=== PATIENT | male | born 1970 | race Hispanic/Latino ===

== ENCOUNTER 2020-12-20 14:28 | Inpatient (IN) | payer BC ==
[2020-12-20] VITALS (10 sets, daily range): BP systolic 121–144; BP diastolic 89–112
[~2020-12-20] VITALS: Ht 177.8 cm; Wt 92.1 kg
[~2020-12-20 14:28] MED LIST: ALBUMIN (HUMAN) 25% 50 ML IV ONE; AMINOCAPROIC ACID 5,000MG VIAL IV ONE; CACL 1GM SYG IVP ONE; FUROSEMIDE 20MG VIAL IVP ONE; HEPARIN 10,000 UNIT/10ML (1,000 UNIT/ML) VIAL IV ONE; LIDOCAINE PF 100MG/5ML (2%) SYRINGE 5ML IVP ONE; MAGNESIUM SULFATE 1 GM/2 ML VIAL IM ONE; PHENYLEPHRINE HCL 10 MG/ML 1ML VIAL IV ONE; SODIUM BICARB 8.4% 50ML SYRINGE IVP ONE
[2020-12-20] MEDS ORDERED: FUROSEMIDE 20MG VIAL ONE (15:52)
[2020-12-20] MEDS ORDERED: METOPROLOL SUCCINATE 50 MG TAB.SR.24H PO ONE (15:52)
[2020-12-20] MEDS ORDERED: METOPROLOL TARTRATE 1 MG/ML 5ML VIAL IV ONE (15:53)
[2020-12-20 15:57] LABS: BASOPHILS % (AUTO) 1.2 % (0.0-5.0); EOSINOPHILS % (AUTO) 0.4 % (0.0-8.0); HEMATOCRIT 46.5 % (42-54); LYMPHOCYTES % (AUTO) 27.5 % (21.0-51.0); MEAN CORPUSCULAR HEMOGLOBIN 28.8 pg (27.0-33.0); MEAN CORPUSCULAR HGB CONC 32.7 g/dL (32.0-36.0); MEAN CORPUSCULAR VOLUME 88.1 fL (79-99); MONOCYTES % (AUTO) 11.9 % (3.0-13.0); NEUTROPHILS % (AUTO) 58.5 % (40.0-77.0); PLATELET COUNT (AUTO) 145 K/uL (130-400); RED BLOOD CELL COUNT(AUTO) 5.28 MIL/uL (4.50-6.20); RED CELL DISTRIBUTION WIDTH 14.6 % (11.0-15.5); WHITE BLOOD COUNT (AUTO) 7.7 K/uL (4.8-10.8)
[2020-12-20 16:05] LABS: HEMOGLOBIN A1C 5.9 % (4.0-6.0)
[2020-12-20 16:15] LABS: BILIRUBIN,TOTAL 1.7 mg/dL (0.2-1.0); CREATININE 1.2 mg/dL (0.5-1.5); POTASSIUM 4.1 mmol/L (3.5-5.1); THYROID STIMULATING HORMONE 1.94 uIU/mL (0.36-3.74); TOTAL PROTEIN, SERUM 8.1 g/dL (6.0-8.3)
[2020-12-20 16:27] LABS: INR 1.17 (0.85-1.15); PROTHROMBIN TIME 12.6 SEC (9.6-11.6)
[2020-12-20 16:29] LABS: PARTIAL THROMBOPLASTIN TIME 27.7 SEC (26.3-35.5)
[2020-12-20] MEDS: METOPROLOL TARTRATE 1 MG/ML 5ML VIAL IV PRN ×2 (16:53→16:58)
[2020-12-20] MEDS: HEPARIN 25,000 UNITS/250ML D5W 250 ML IV SCH (16:54)
[2020-12-20] MEDS ORDERED: ONDANSETRON 4MG INJ IV PRN (17:30)
[2020-12-20] MEDS ORDERED: LACTULOSE 20 GM/30 ML UDCUP PO PRN (17:30)
[2020-12-20] MEDS ORDERED: ACETAMINOPHEN 325 MG TAB PO PRN ×2 (17:30)
[2020-12-20] MEDS ORDERED: NITROGLYCERIN 0.4 MG SL TAB SL PRN (17:30)
[2020-12-20 17:59] LABS: PHOSPHORUS 4.6 mg/dL (2.5-4.9)
[2020-12-20 18:13] LABS: B-TYPE NATRIURETIC PEPTIDE 493 pg/mL (0-100)
[2020-12-20] MEDS ORDERED: DILTIAZEM 125 MG/25 ML INJ IV ONE (18:17)
[2020-12-20 18:25] LABS: APPEARANCE,URINE Clear (CLEAR); BILIRUBIN,URINE Negative (NEGATIVE); COLOR,URINE Yellow (YELLOW); GLUCOSE, URINE (UA) Negative (NEGATIVE); KETONES,URINE Negative (NEGATIVE); LEUKOCYTE ESTERASE ,URINE Negative (NEGATIVE); NITRATE,URINE Negative (NEGATIVE); OCCULT BLOOD,URINE Trace (NEGATIVE); PROTEIN,URINE Trace mg/dL (NEGATIVE)
[2020-12-20 18:30] LABS: BACTERIA,URINE Few /HPF (None Seen); MUCUS,URINE Few LPF (None Seen); SQUAMOUS EPITHELIAL CELL,UR Rare /HPF (0-2)
[2020-12-20] MEDS ORDERED: DILTIAZEM 125MG+100 ML NS 125 ML IV SCH (18:30)
[2020-12-20 18:45] LABS: ERYTHROCYTE SEDIMENTATION RATE 8 MM/HR (0-20)
[2020-12-20] MEDS: FUROSEMIDE 20MG VIAL IV SCH (20:43)
[2020-12-20] MEDS: FAMOTIDINE 20MG TAB PO SCH (20:43)
[2020-12-20] MEDS: METOPROLOL SUCCINATE 50 MG TAB.SR.24H PO SCH (21:00)
[2020-12-20] MEDS ORDERED: FUROSEMIDE 20MG VIAL IV SCH (21:00)
[2020-12-20] MEDS ORDERED: APIX2.5T PO (21:10)
[2020-12-20] MEDS ORDERED: LOSA25TA41 PO (21:10)
[2020-12-20] MEDS ORDERED: AEC81 PO (21:10)
[2020-12-20 23:45] LABS: MAGNESIUM 1.9 mg/dL (1.80-2.40); POTASSIUM 3.8 mmol/L (3.5-5.1)
[2020-12-21] VITALS (16 sets, daily range): BP systolic 117–140; BP diastolic 77–101
[2020-12-21] MEDS ORDERED: DILTIAZEM 125 MG/25 ML INJ IV ONE (04:47)
[2020-12-21] MEDS ORDERED: 0.9%NACL 100ML 100 ML ONE (04:48)
[2020-12-21 07:27] LABS: BASOPHILS % (AUTO) 0.9 % (0.0-5.0); HEMATOCRIT 42.1 % (42-54); LYMPHOCYTES % (AUTO) 29.7 % (21.0-51.0); MEAN CORPUSCULAR HEMOGLOBIN 29.2 pg (27.0-33.0); MEAN CORPUSCULAR HGB CONC 32.8 g/dL (32.0-36.0); MONOCYTES % (AUTO) 11.1 % (3.0-13.0); NEUTROPHILS % (AUTO) 56.9 % (40.0-77.0); PLATELET COUNT (AUTO) 131 K/uL (130-400); RED BLOOD CELL COUNT(AUTO) 4.73 MIL/uL (4.50-6.20); RED CELL DISTRIBUTION WIDTH 14.6 % (11.0-15.5); WHITE BLOOD COUNT (AUTO) 6.7 K/uL (4.8-10.8)
[2020-12-21 07:57] LABS: B-TYPE NATRIURETIC PEPTIDE 511 pg/mL (0-100)
[2020-12-21 08:10] LABS: ALBUMIN 3.1 g/dL (3.5-5.0); BILIRUBIN,TOTAL 1.8 mg/dL (0.2-1.0); CREATININE 1.2 mg/dL (0.5-1.5); POTASSIUM 3.5 mmol/L (3.5-5.1); TOTAL PROTEIN, SERUM 7.1 g/dL (6.0-8.3)
[2020-12-21] MEDS ORDERED: METOPROLOL SUCCINATE 50 MG TAB.SR.24H PO SCH ×2 (09:00)
[2020-12-21] MEDS: FUROSEMIDE 20MG VIAL IV SCH ×3 (09:02→21:18)
[2020-12-21] MEDS: FAMOTIDINE 20MG TAB PO SCH ×2 (09:03→21:18)
[2020-12-21] MEDS: DILTIAZEM 120MG SR CAP PO SCH (09:03)
[2020-12-21] MEDS: KCL 20 MEQ ERTAB PO SCH (09:03)
[2020-12-21] MEDS: METOPROLOL SUCCINATE 50 MG TAB.SR.24H PO SCH ×2 (09:03→21:00)
[2020-12-21 16:08] LABS: INR 1.21 (0.85-1.15)
[2020-12-21 16:09] LABS: PARTIAL THROMBOPLASTIN TIME 60.5 SEC (26.3-35.5)
[2020-12-22 03:50] VITALS: BP 152/97
[2020-12-22 03:52] LABS: BASOPHILS % (AUTO) 0.9 % (0.0-5.0); EOSINOPHILS % (AUTO) 1.7 % (0.0-8.0); HEMATOCRIT 39.7 % (42-54); LYMPHOCYTES % (AUTO) 29.3 % (21.0-51.0); MEAN CORPUSCULAR HEMOGLOBIN 28.6 pg (27.0-33.0); MEAN CORPUSCULAR VOLUME 86.7 fL (79-99); MONOCYTES % (AUTO) 13.1 % (3.0-13.0); NEUTROPHILS % (AUTO) 54.4 % (40.0-77.0); PLATELET COUNT (AUTO) 140 K/uL (130-400); RED BLOOD CELL COUNT(AUTO) 4.58 MIL/uL (4.50-6.20); RED CELL DISTRIBUTION WIDTH 14.3 % (11.0-15.5); WHITE BLOOD COUNT (AUTO) 6.9 K/uL (4.8-10.8)
[2020-12-22 04:22] LABS: ALBUMIN 3.4 g/dL (3.5-5.0); BILIRUBIN,TOTAL 1.3 mg/dL (0.2-1.0); CREATININE 1.4 mg/dL (0.5-1.5); POTASSIUM 3.4 mmol/L (3.5-5.1); TOTAL PROTEIN, SERUM 7.1 g/dL (6.0-8.3)
[2020-12-22] MEDS: HEPARIN 25,000 UNITS/250ML D5W 250 ML IV SCH ×2 (05:43→21:25)
[2020-12-22 08:12] VITALS: BP 131/81
[2020-12-22 08:14] LABS: HEPATITIS A ANTIBODY IGM Negative (Negative); HEPATITIS B CORE IGM Negative (Negative); HEPATITIS Bs ANTIGEN SCREEN P Negative (Negative)
[2020-12-22] MEDS: FAMOTIDINE 20MG TAB PO SCH ×2 (10:09→21:14)
[2020-12-22] MEDS: KCL 20 MEQ ERTAB PO SCH (10:10)
[2020-12-22] MEDS: DILTIAZEM 120MG SR CAP PO SCH (10:10)
[2020-12-22] MEDS: METOPROLOL SUCCINATE 50 MG TAB.SR.24H PO SCH ×2 (10:10→21:15)
[2020-12-22] MEDS: FUROSEMIDE 20MG VIAL IV SCH ×3 (10:10→21:14)
[2020-12-22 11:43] VITALS: BP 137/77
[2020-12-22 16:23] VITALS: BP 128/70
[2020-12-22 20:00] VITALS: BP 119/71
[2020-12-23] VITALS: BP 104/82
[2020-12-23 04:00] VITALS: BP 128/83
[2020-12-23 04:38] LABS: BASOPHILS % (AUTO) 0.9 % (0.0-5.0); EOSINOPHILS % (AUTO) 1.9 % (0.0-8.0); HEMATOCRIT 42.8 % (42-54); LYMPHOCYTES % (AUTO) 36.4 % (21.0-51.0); MEAN CORPUSCULAR HEMOGLOBIN 29.3 pg (27.0-33.0); MEAN CORPUSCULAR HGB CONC 33.2 g/dL (32.0-36.0); MEAN CORPUSCULAR VOLUME 88.2 fL (79-99); MONOCYTES % (AUTO) 13.5 % (3.0-13.0); NEUTROPHILS % (AUTO) 46.6 % (40.0-77.0); PLATELET COUNT (AUTO) 168 K/uL (130-400); RED BLOOD CELL COUNT(AUTO) 4.85 MIL/uL (4.50-6.20); RED CELL DISTRIBUTION WIDTH 14.4 % (11.0-15.5)
[2020-12-23 04:54] LABS: ALBUMIN 3.4 g/dL (3.5-5.0); BILIRUBIN,TOTAL 0.9 mg/dL (0.2-1.0); CREATININE 1.2 mg/dL (0.5-1.5); POTASSIUM 3.4 mmol/L (3.5-5.1); TOTAL PROTEIN, SERUM 7.3 g/dL (6.0-8.3)
[2020-12-23 06:09] LABS: INR 1.18 (0.85-1.15); PROTHROMBIN TIME 12.7 SEC (9.6-11.6)
[2020-12-23 06:10] LABS: PARTIAL THROMBOPLASTIN TIME 66.9 SEC (26.3-35.5)
[2020-12-23] MEDS: KCL 20 MEQ ERTAB PO PRN ×2 (06:20→16:30)
[2020-12-23] MEDS: METOPROLOL SUCCINATE 50 MG TAB.SR.24H PO SCH ×2 (06:20→20:23)
[2020-12-23] MEDS ORDERED: POTASSIUM CHLORIDE 10% ELIXIR 20 MEQ/15 ML UDCUP PO PRN (06:30)
[2020-12-23] MEDS ORDERED: LIDOCAINE HCL-MPF 1% 2ML VIAL IV PRN (06:30)
[2020-12-23 07:48] VITALS: BP 132/98
[2020-12-23] MEDS ORDERED: MIDAZOLAM HCL 1 MG/ML 2ML VIAL ONE (09:12)
[2020-12-23] MEDS ORDERED: FENTANYL CITRATE PF 50 MCG/1 ML 2ML VIAL ONE ×2 (09:12→09:15)
[2020-12-23] MEDS ORDERED: LIDOCAINE HCL 2% VISCOUS 15 ML UDCUP ONE (09:15)
[2020-12-23] MEDS ORDERED: FUROSEMIDE 40 MG TABLET PO SCH (09:30)
[2020-12-23] MEDS ORDERED: AMIODARONE 900MG VIAL 150 MG in DEXTROSE 5%-WATER 100 ML IV SCH (11:00)
[2020-12-23] MEDS ORDERED: AMIODARONE 900MG VIAL 900 MG in DEXTROSE 5%-WATER 500 ML IV SCH (11:00)
[2020-12-23] MEDS ORDERED: AMIODARONE 900MG VIAL 360 MG in DEXTROSE 5%-WATER 200 ML IV SCH (11:00)
[2020-12-23] MEDS ORDERED: AMIODARONE 900MG VIAL 450 MG in DEXTROSE 5%-WATER 250 ML IV SCH (11:00)
[2020-12-23] MEDS: FAMOTIDINE 20MG TAB PO SCH ×2 (11:45→20:23)
[2020-12-23] MEDS: KCL 20 MEQ ERTAB PO SCH (11:45)
[2020-12-23 11:49] VITALS: BP 130/87
[2020-12-23] MEDS: FENTANYL CITRATE PF 50 MCG/1 ML 2ML VIAL IVP SCH (14:50)
[2020-12-23] MEDS: MIDAZOLAM HCL 1 MG/ML 2ML VIAL IVP SCH (14:50)
[2020-12-23 15:25] VITALS: BP 114/88
[2020-12-23] MEDS: FUROSEMIDE 40 MG TABLET PO SCH (16:27)
[2020-12-23 20:00] VITALS: BP 129/94
[2020-12-23] MEDS: HEPARIN 25,000 UNITS/250ML D5W 250 ML IV SCH (20:30)
[2020-12-24] VITALS: BP 130/90
[2020-12-24 04:00] VITALS: BP 118/89
[2020-12-24 04:42] LABS: INR 1.12 (0.85-1.15); PROTHROMBIN TIME 12.1 SEC (9.6-11.6)
[2020-12-24 04:57] LABS: ALBUMIN 3.6 g/dL (3.5-5.0); BILIRUBIN,TOTAL 1.2 mg/dL (0.2-1.0); CREATININE 1.3 mg/dL (0.5-1.5); POTASSIUM 3.9 mmol/L (3.5-5.1); TOTAL PROTEIN, SERUM 7.9 g/dL (6.0-8.3)
[2020-12-24] MEDS: MIDAZOLAM HCL 1 MG/ML 2ML VIAL IVP SCH (07:04)
[2020-12-24] MEDS: FENTANYL CITRATE PF 50 MCG/1 ML 2ML VIAL IVP SCH (07:04)
[2020-12-24] MEDS: FUROSEMIDE 40 MG TABLET PO SCH ×2 (07:32→16:13)
[2020-12-24] MEDS: METOPROLOL SUCCINATE 50 MG TAB.SR.24H PO SCH ×2 (07:32→20:18)
[2020-12-24] MEDS: FAMOTIDINE 20MG TAB PO SCH ×2 (07:32→20:18)
[2020-12-24] MEDS: KCL 20 MEQ ERTAB PO SCH (07:33)
[2020-12-24 08:09] VITALS: BP 142/107
[2020-12-24 11:44] VITALS: BP 115/80
[2020-12-24 16:00] VITALS: BP 131/98
[2020-12-24 20:00] VITALS: BP 141/102
[2020-12-25] VITALS: BP 139/98
[2020-12-25 04:00] VITALS: BP 137/100
[2020-12-25 05:04] LABS: EOSINOPHILS % (AUTO) 2.5 % (0.0-8.0); HEMATOCRIT 43.2 % (42-54); LYMPHOCYTES % (AUTO) 40.7 % (21.0-51.0); MEAN CORPUSCULAR HEMOGLOBIN 29.2 pg (27.0-33.0); MEAN CORPUSCULAR HGB CONC 33.6 g/dL (32.0-36.0); MEAN CORPUSCULAR VOLUME 86.9 fL (79-99); MONOCYTES % (AUTO) 9.6 % (3.0-13.0); NEUTROPHILS % (AUTO) 45.9 % (40.0-77.0); PLATELET COUNT (AUTO) 168 K/uL (130-400); RED BLOOD CELL COUNT(AUTO) 4.97 MIL/uL (4.50-6.20); RED CELL DISTRIBUTION WIDTH 14.1 % (11.0-15.5); WHITE BLOOD COUNT (AUTO) 5.9 K/uL (4.8-10.8)
[2020-12-25 05:15] LABS: INR 1.11 (0.85-1.15)
[2020-12-25 05:16] LABS: PARTIAL THROMBOPLASTIN TIME 70.4 SEC (26.3-35.5)
[2020-12-25 05:17] LABS: CREATININE 1.3 mg/dL (0.5-1.5); POTASSIUM 3.7 mmol/L (3.5-5.1)
[2020-12-25] MEDS: AMIODARONE 200 MG TABLET PO SCH (07:38)
[2020-12-25] MEDS: FUROSEMIDE 40 MG TABLET PO SCH ×2 (07:38→16:22)
[2020-12-25] MEDS: METOPROLOL SUCCINATE 50 MG TAB.SR.24H PO SCH ×2 (07:38→20:10)
[2020-12-25] MEDS: FAMOTIDINE 20MG TAB PO SCH ×2 (07:38→20:10)
[2020-12-25] MEDS: KCL 20 MEQ ERTAB PO SCH (07:39)
[2020-12-25] MEDS: HEPARIN 25,000 UNITS/250ML D5W 250 ML IV SCH (07:46)
[2020-12-25 08:56] VITALS: BP 139/66
[2020-12-25] MEDS: FENTANYL CITRATE PF 50 MCG/1 ML 2ML VIAL IVP SCH (09:10)
[2020-12-25] MEDS: MIDAZOLAM HCL 1 MG/ML 2ML VIAL IVP SCH (09:10)
[2020-12-25 11:36] VITALS: BP 126/103
[2020-12-25 16:02] VITALS: BP 138/104
[2020-12-25 20:00] VITALS: BP 132/93
[2020-12-26] VITALS (14 sets, daily range): BP systolic 120–146; BP diastolic 70–102
[2020-12-26 03:50] LABS: HEMATOCRIT 47.5 % (42-54); MEAN CORPUSCULAR HEMOGLOBIN 28.9 pg (27.0-33.0); MEAN CORPUSCULAR HGB CONC 32.8 g/dL (32.0-36.0); MEAN CORPUSCULAR VOLUME 88.1 fL (79-99); RED BLOOD CELL COUNT(AUTO) 5.39 MIL/uL (4.50-6.20); RED CELL DISTRIBUTION WIDTH 14.2 % (11.0-15.5); WHITE BLOOD COUNT (AUTO) 7.2 K/uL (4.8-10.8)
[2020-12-26 04:03] LABS: INR 1.08 (0.85-1.15); PROTHROMBIN TIME 11.7 SEC (9.6-11.6)
[2020-12-26 04:07] LABS: CREATININE 1.4 mg/dL (0.5-1.5); POTASSIUM 5.2 mmol/L (3.5-5.1)
[2020-12-26] MEDS ORDERED: 0.9% NACL 500ML IV.SOLN 500 ML IV SCH (11:00)
[2020-12-26] MEDS ORDERED: HEPARIN 10,000 UNIT/10ML (1,000 UNIT/ML) VIAL ONE (11:38)
[2020-12-26] MEDS ORDERED: LIDOCAINE HCL 400MG/20ML VIAL ONE (11:38)
[2020-12-26] MEDS ORDERED: NITROGLYCERIN 2 MG VIAL IV ONE (11:38)
[2020-12-26] MEDS ORDERED: IOHEXOL 350 MG/ML 100ML INFUS..BTL IV ONE (11:42)
[2020-12-26] MEDS ORDERED: 0.9%NACL 1000ML 1,000 ML IV SCH (13:00)
[2020-12-26] MEDS ORDERED: DEXTROSE 50%-WATER 50 ML DISP.SYRIN IV PRN (13:00)
[2020-12-26] MEDS ORDERED: GLUCAGON 1MG KIT 1 MG ML IM PRN (13:00)
[2020-12-26] MEDS: FAMOTIDINE 20MG TAB PO SCH ×2 (13:01→21:37)
[2020-12-26] MEDS: AMIODARONE 200 MG TABLET PO SCH (13:02)
[2020-12-26] MEDS: KCL 20 MEQ ERTAB PO SCH (13:02)
[2020-12-26] MEDS: FUROSEMIDE 40 MG TABLET PO SCH ×2 (13:02→17:13)
[2020-12-26] MEDS: METOPROLOL SUCCINATE 50 MG TAB.SR.24H PO SCH ×2 (13:03→21:36)
[2020-12-26 16:42] LABS: APPEARANCE,URINE Clear (CLEAR); BILIRUBIN,URINE Negative (NEGATIVE); COLOR,URINE Yellow (YELLOW); GLUCOSE, URINE (UA) Negative (NEGATIVE); KETONES,URINE Negative (NEGATIVE); LEUKOCYTE ESTERASE ,URINE Negative (NEGATIVE); NITRATE,URINE Negative (NEGATIVE); OCCULT BLOOD,URINE Negative (NEGATIVE); PH,URINE 7.5 (5.0-8.0); PROTEIN,URINE Negative (NEGATIVE)
[2020-12-27] VITALS: BP 128/86
[2020-12-27 04:00] VITALS: BP 139/97
[2020-12-27 04:26] LABS: EOSINOPHILS % (AUTO) 1.6 % (0.0-8.0); HEMATOCRIT 47.7 % (42-54); LYMPHOCYTES % (AUTO) 36.2 % (21.0-51.0); MEAN CORPUSCULAR HGB CONC 33.3 g/dL (32.0-36.0); MEAN CORPUSCULAR VOLUME 86.9 fL (79-99); MONOCYTES % (AUTO) 10.3 % (3.0-13.0); NEUTROPHILS % (AUTO) 50.6 % (40.0-77.0); PLATELET COUNT (AUTO) 208 K/uL (130-400); RED BLOOD CELL COUNT(AUTO) 5.49 MIL/uL (4.50-6.20)
[2020-12-27 04:27] LABS: ABG BASE EXCESS 2.8 mmol/L (-2.0-3.0); ABG HCO3 27.4 mmol/L (21.0-28.0); ABG PCO2 42 mmHg (35-48)
[2020-12-27 04:40] LABS: B-TYPE NATRIURETIC PEPTIDE 273 pg/mL (0-100); INR 1.08 (0.85-1.15); PROTHROMBIN TIME 11.7 SEC (9.6-11.6)
[2020-12-27 04:41] LABS: PARTIAL THROMBOPLASTIN TIME 66.2 SEC (26.3-35.5)
[2020-12-27 05:04] LABS: ALBUMIN 3.4 g/dL (3.5-5.0); BILIRUBIN,TOTAL 0.8 mg/dL (0.2-1.0); CREATININE 1.4 mg/dL (0.5-1.5); POTASSIUM 3.9 mmol/L (3.5-5.1); TOTAL PROTEIN, SERUM 7.8 g/dL (6.0-8.3)
[2020-12-27] MEDS: KCL 20 MEQ ERTAB PO SCH (07:55)
[2020-12-27] MEDS: METOPROLOL SUCCINATE 50 MG TAB.SR.24H PO SCH ×2 (07:55→21:35)
[2020-12-27] MEDS: FUROSEMIDE 40 MG TABLET PO SCH ×2 (07:55→16:07)
[2020-12-27] MEDS: AMIODARONE 200 MG TABLET PO SCH (07:55)
[2020-12-27] MEDS: FAMOTIDINE 20MG TAB PO SCH ×2 (07:55→21:34)
[2020-12-27 08:50] VITALS: BP 137/99
[2020-12-27 12:33] VITALS: BP 130/97
[2020-12-27] MEDS ORDERED: EPINEPHRINE PF 1MG AMP 10 MG in 0.9% NACL 250ML 240 ML IV PRN (14:00)
[2020-12-27] MEDS ORDERED: NOREPINEPHRIN 8MG/250ML NS PMX 250 ML IV PRN (14:00)
[2020-12-27] MEDS ORDERED: AMINOCAPROIC ACID 5,000MG VIAL 15,000 MG in 0.9% NACL 500ML IV.SOLN 420 ML IV PRN (14:00)
[2020-12-27] MEDS ORDERED: CEFAZOLIN SODIUM 1 GM VIAL IVP PRN (15:00)
[2020-12-27 16:51] VITALS: BP 157/96
[2020-12-27 20:00] VITALS: BP 134/94
[2020-12-28] VITALS (32 sets, daily range): BP systolic 105–148; BP diastolic 50–100
[2020-12-28 04:56] LABS: EOSINOPHILS % (AUTO) 1.8 % (0.0-8.0); LYMPHOCYTES % (AUTO) 39.2 % (21.0-51.0); MEAN CORPUSCULAR HEMOGLOBIN 28.6 pg (27.0-33.0); MEAN CORPUSCULAR HGB CONC 33.2 g/dL (32.0-36.0); MEAN CORPUSCULAR VOLUME 86.1 fL (79-99); MONOCYTES % (AUTO) 12.7 % (3.0-13.0); NEUTROPHILS % (AUTO) 44.9 % (40.0-77.0); PLATELET COUNT (AUTO) 226 K/uL (130-400); RED BLOOD CELL COUNT(AUTO) 5.46 MIL/uL (4.50-6.20); WHITE BLOOD COUNT (AUTO) 6.8 K/uL (4.8-10.8)
[2020-12-28 05:07] LABS: INR 1.08 (0.85-1.15); PROTHROMBIN TIME 11.7 SEC (9.6-11.6)
[2020-12-28 05:08] LABS: PARTIAL THROMBOPLASTIN TIME 27.6 SEC (26.3-35.5)
[2020-12-28 05:20] LABS: ALBUMIN 3.4 g/dL (3.5-5.0); BILIRUBIN,TOTAL 0.9 mg/dL (0.2-1.0); CREATININE 1.2 mg/dL (0.5-1.5); TOTAL PROTEIN, SERUM 7.7 g/dL (6.0-8.3)
[2020-12-28] MEDS: METOPROLOL SUCCINATE 50 MG TAB.SR.24H PO SCH (07:21)
[2020-12-28] MEDS ORDERED: CEFAZOLIN SODIUM 1 GM VIAL ONE ×2 (08:19→08:32)
[2020-12-28] MEDS ORDERED: NITROGLYCERIN 50MG/D5W 250ML 1 BOT ONE (08:38)
[2020-12-28] MEDS ORDERED: DELNIDO FORMULA 2 BAG IV ONE (08:44)
[2020-12-28] MEDS: AMIODARONE 200 MG TABLET PO SCH (09:00)
[2020-12-28] MEDS: FAMOTIDINE 20MG TAB PO SCH ×2 (09:00→20:02)
[2020-12-28] MEDS: KCL 20 MEQ ERTAB PO SCH (09:00)
[2020-12-28] MEDS ORDERED: ROPIVACAINE 0.5% 5MG/ML 30ML IJ ONE (09:11)
[2020-12-28] MEDS ORDERED: AMINOCAPROIC ACID 5,000MG VIAL ONE (09:38)
[2020-12-28] MEDS ORDERED: HEPARIN 10,000 UNIT/10ML (1,000 UNIT/ML) VIAL ONE (09:38)
[2020-12-28] MEDS ORDERED: PROTAMINE SULFATE 10 MG/ML 25ML VIAL IV ONE (09:38)
[2020-12-28] MEDS ORDERED: ESMOLOL HCL 10 MG/ML 10 ML VIAL ONE (09:38)
[2020-12-28] MEDS ORDERED: SODIUM BICARB 50MEQ 50ML VIAL 300 ML ONE (09:38)
[2020-12-28] MEDS ORDERED: LIDOCAINE PF 100MG/5ML (2%) SYRINGE 5ML ONE (09:38)
[2020-12-28] MEDS ORDERED: EPINEPHRINE PF 1MG AMP ONE (09:38)
[2020-12-28] MEDS ORDERED: PROPOFOL 10 MG/ML 20ML VIAL IV ONE (09:38)
[2020-12-28] MEDS ORDERED: NOREPINEPHRINE BITARTRATE 1 MG/1 ML ML IV ONE (09:38)
[2020-12-28] MEDS ORDERED: FENTANYL CITRATE PF 50 MCG/1 ML 20ML VIAL IJ ONE (09:39)
[2020-12-28] MEDS ORDERED: MIDAZOLAM HCL 1 MG/ML 2ML VIAL ONE (09:39)
[2020-12-28] MEDS ORDERED: ROCURONIUM 10MG/1ML SYR 10 MG/ML ML ONE ×2 (09:40→14:17)
[2020-12-28] MEDS ORDERED: KETAMINE 50MG/ML SYRINGE 50 MG/ML DISP.SYRIN IV ONE (09:40)
[2020-12-28 10:10] LABS: ABG BASE EXCESS -0.2 mmol/L (-2.0-3.0); ABG HCO3 25.1 mmol/L (21.0-28.0); ABG OXYGEN SATURATION 99.8 % (95.0-99.0); ABG PCO2 43 mmHg (35-48)
[2020-12-28 11:13] LABS: ABG BASE EXCESS -2.5 mmol/L (-2.0-3.0); ABG HCO3 23.2 mmol/L (21.0-28.0); ABG OXYGEN SATURATION 98.6 % (95.0-99.0); ABG PCO2 43 mmHg (35-48)
[2020-12-28 11:51] LABS: ABG BASE EXCESS 0.5 mmol/L (-2.0-3.0); ABG HCO3 25.4 mmol/L (21.0-28.0); ABG OXYGEN SATURATION 99.1 % (95.0-99.0); ABG PCO2 42 mmHg (35-48)
[2020-12-28] MEDS ORDERED: AMIODARONE 150MG VIAL ONE (12:31)
[2020-12-28 12:43] LABS: ABG BASE EXCESS -0.3 mmol/L (-2.0-3.0); ABG HCO3 21.9 mmol/L (21.0-28.0); ABG OXYGEN SATURATION 99.7 % (95.0-99.0); ABG PCO2 29 mmHg (35-48)
[2020-12-28] MEDS ORDERED: NOREPINEPHRIN 4MG/NS 250ML 250 ML IV PRN (13:00)
[2020-12-28] MEDS ORDERED: ACETAMINOPHEN 650 MG SUPPOSITORY RC PRN (13:00)
[2020-12-28] MEDS ORDERED: NITROGLYCERIN 50MG/D5W 250ML 250 BOT IV SCH (13:00)
[2020-12-28] MEDS ORDERED: POTASSIUM PHOS 15 mMOL+NS250ML 250 ML IV PRN (13:00)
[2020-12-28] MEDS ORDERED: ALBUMIN (HUMAN) 5% 250 ML IV PRN (13:00)
[2020-12-28] MEDS ORDERED: MORPHINE 4 MG SYG IV PRN (13:00)
[2020-12-28] MEDS ORDERED: TRAMADOL HCL 50 MG TABLET PO PRN (13:00)
[2020-12-28] MEDS ORDERED: 0.9% NACL 500ML IV.SOLN 500 ML IV SCH (13:00)
[2020-12-28] MEDS ORDERED: INSULIN REGULAR, HUMAN 3ML 100 UNIT in 0.9%NACL 100ML 99 ML IV SCH ×2 (13:00)
[2020-12-28] MEDS ORDERED: 0.9%NACL 10ML VIAL IVP PRN (13:00)
[2020-12-28] MEDS ORDERED: AMINOCAPROIC ACID 5,000MG VIAL 15,000 MG in 0.9% NACL 250ML 250 ML IV SCH (13:00)
[2020-12-28] MEDS ORDERED: GLUCAGON 1MG KIT 1 MG ML IM PRN (13:00)
[2020-12-28] MEDS ORDERED: EPINEPHRINE PF 1MG AMP 10 MG in DEXTROSE 5%-WATER 250 ML IV PRN (13:00)
[2020-12-28] MEDS ORDERED: ONDANSETRON 4MG INJ IV PRN (13:00)
[2020-12-28] MEDS ORDERED: DEXTROSE 50%-WATER 50 ML DISP.SYRIN IV PRN (13:00)
[2020-12-28] MEDS ORDERED: 0.9%NACL 1000ML 1,000 ML IV SCH (13:00)
[2020-12-28] MEDS ORDERED: MAGNESIUM 2GM PREMIX 50ML 50 ML IV PRN (13:00)
[2020-12-28] MEDS ORDERED: POTASSIUM CHLORIDE 20MEQ/100ML 100 ML IV PRN (13:00)
[2020-12-28] MEDS ORDERED: MORPHINE 2 MG SYG IV PRN (13:00)
[2020-12-28 13:42] LABS: ABG HCO3 20.1 mmol/L (21.0-28.0); ABG OXYGEN SATURATION 99.1 % (95.0-99.0); ABG PCO2 31 mmHg (35-48)
[2020-12-28 14:53] LABS: ABG HCO3 19.9 mmol/L (21.0-28.0); ABG OXYGEN SATURATION 98.5 % (95.0-99.0); ABG PCO2 33 mmHg (35-48)
[2020-12-28 14:59] LABS: HEMATOCRIT 37.3 % (42-54); MEAN CORPUSCULAR HGB CONC 33.2 g/dL (32.0-36.0); MEAN CORPUSCULAR VOLUME 87.4 fL (79-99); RED BLOOD CELL COUNT(AUTO) 4.27 MIL/uL (4.50-6.20); RED CELL DISTRIBUTION WIDTH 14.1 % (11.0-15.5); WHITE BLOOD COUNT (AUTO) 19.1 K/uL (4.8-10.8)
[2020-12-28] MEDS ORDERED: ROPIVACAINE 0.2% 2MG/ML 100ML VIAL EP ONE (15:00)
[2020-12-28] MEDS: SODIUM BICARB 50MEQ 50ML VIAL IV PRN ×4 (15:03→21:19)
[2020-12-28 15:17] LABS: CREATININE 1.3 mg/dL (0.5-1.5); INR 1.2 (0.85-1.15); MAGNESIUM 2.8 mg/dL (1.80-2.40); PHOSPHORUS 2.8 mg/dL (2.5-4.9); POTASSIUM 3.7 mmol/L (3.5-5.1); PROTHROMBIN TIME 12.9 SEC (9.6-11.6)
[2020-12-28 15:18] LABS: PARTIAL THROMBOPLASTIN TIME 30.7 SEC (26.3-35.5)
[2020-12-28] MEDS: POTASSIUM CHLORIDE 20MEQ/100ML 100 ML IV PRN ×5 (15:18→23:24)
[2020-12-28] MEDS: PROPOFOL 1000 MG/100 ML 100 ML IV PRN ×2 (15:18→21:57)
[2020-12-28 15:57] LABS: ABG BASE EXCESS -3.9 mmol/L (-2.0-3.0); ABG HCO3 19.7 mmol/L (21.0-28.0); ABG OXYGEN SATURATION 98.7 % (95.0-99.0); ABG PCO2 32 mmHg (35-48)
[2020-12-28] MEDS: 0.2% ROPIVACAINE 600ML Q-PUMP IRRIG SCH (16:28)
[2020-12-28 17:05] LABS: ABG BASE EXCESS -3.2 mmol/L (-2.0-3.0); ABG HCO3 21.2 mmol/L (21.0-28.0); ABG OXYGEN SATURATION 98.8 % (95.0-99.0); ABG PCO2 36 mmHg (35-48)
[2020-12-28] MEDS: CEFAZOLIN SODIUM 1 GM VIAL IV SCH (17:28)
[2020-12-28] MEDS: CALCIUM GLUC 1GM 1 GM in 0.9%NACL 50ML 50 ML IV PRN ×3 (17:41→23:15)
[2020-12-28 18:25] LABS: ABG HCO3 24.7 mmol/L (21.0-28.0); ABG OXYGEN SATURATION 98.4 % (95.0-99.0); ABG PCO2 40 mmHg (35-48)
[2020-12-28 19:52] LABS: ABG BASE EXCESS 0.8 mmol/L (-2.0-3.0); ABG HCO3 24.2 mmol/L (21.0-28.0); ABG PCO2 35 mmHg (35-48)
[2020-12-28] MEDS: FAMOTIDINE 20MG VIAL IV SCH (19:59)
[2020-12-28] MEDS: FUROSEMIDE 20MG VIAL IV SCH (20:00)
[2020-12-28] MEDS: ATORVASTATIN 40 MG TABLET PO SCH (20:02)
[2020-12-28 21:16] LABS: ABG BASE EXCESS -2.1 mmol/L (-2.0-3.0); ABG HCO3 22.4 mmol/L (21.0-28.0); ABG OXYGEN SATURATION 98.3 % (95.0-99.0); ABG PCO2 38 mmHg (35-48)
[2020-12-28 23:14] LABS: ABG BASE EXCESS 4.3 mmol/L (-2.0-3.0); ABG HCO3 26.6 mmol/L (21.0-28.0); ABG OXYGEN SATURATION 98.1 % (95.0-99.0); ABG PCO2 32 mmHg (35-48)
[2020-12-28 23:55] LABS: ABG BASE EXCESS 5.4 mmol/L (-2.0-3.0); ABG HCO3 27.2 mmol/L (21.0-28.0); ABG OXYGEN SATURATION 98.4 % (95.0-99.0); ABG PCO2 31 mmHg (35-48)
[2020-12-29] VITALS (91 sets, daily range): BP systolic 30–178; BP diastolic 29–118
[2020-12-29] LABS: ABG BASE EXCESS 4.7 mmol/L (-2.0-3.0); ABG HCO3 26.2 mmol/L (21.0-28.0); ABG OXYGEN SATURATION 98.3 % (95.0-99.0); ABG PCO2 30 mmHg (35-48)
[2020-12-29] MEDS: CALCIUM GLUC 1GM 1 GM in 0.9%NACL 50ML 50 ML IV PRN ×2 (00:19→05:14)
[2020-12-29] MEDS: POTASSIUM CHLORIDE 20MEQ/100ML 100 ML IV PRN ×2 (00:44→02:02)
[2020-12-29 01:20] LABS: ABG BASE EXCESS 4.8 mmol/L (-2.0-3.0); ABG HCO3 29.9 mmol/L (21.0-28.0); ABG OXYGEN SATURATION 99.3 % (95.0-99.0); ABG PCO2 46 mmHg (35-48)
[2020-12-29] MEDS: CEFAZOLIN SODIUM 1 GM VIAL IV SCH ×2 (01:59→09:38)
[2020-12-29 04:01] LABS: ABG BASE EXCESS 5.4 mmol/L (-2.0-3.0); ABG HCO3 30.8 mmol/L (21.0-28.0); ABG OXYGEN SATURATION 98.5 % (95.0-99.0); ABG PCO2 48 mmHg (35-48)
[2020-12-29 04:18] LABS: BASOPHILS % (AUTO) 0.3 % (0.0-5.0); EOSINOPHILS % (AUTO) 0.7 % (0.0-8.0); HEMATOCRIT 36.9 % (42-54); LYMPHOCYTES % (AUTO) 9.2 % (21.0-51.0); MEAN CORPUSCULAR HEMOGLOBIN 29.2 pg (27.0-33.0); MEAN CORPUSCULAR HGB CONC 32.8 g/dL (32.0-36.0); MEAN CORPUSCULAR VOLUME 89.1 fL (79-99); MONOCYTES % (AUTO) 13.7 % (3.0-13.0); NEUTROPHILS % (AUTO) 75.4 % (40.0-77.0); PLATELET COUNT (AUTO) 166 K/uL (130-400); RED BLOOD CELL COUNT(AUTO) 4.14 MIL/uL (4.50-6.20); RED CELL DISTRIBUTION WIDTH 14.7 % (11.0-15.5); WHITE BLOOD COUNT (AUTO) 15.5 K/uL (4.8-10.8)
[2020-12-29 04:27] LABS: INR 1.11 (0.85-1.15)
[2020-12-29 04:28] LABS: PARTIAL THROMBOPLASTIN TIME 27.6 SEC (26.3-35.5)
[2020-12-29 04:33] LABS: ALBUMIN 3.4 g/dL (3.5-5.0); BILIRUBIN,TOTAL 0.8 mg/dL (0.2-1.0); CREATININE 1.3 mg/dL (0.5-1.5); MAGNESIUM 2.2 mg/dL (1.80-2.40); PHOSPHORUS 3.2 mg/dL (2.5-4.9); POTASSIUM 4.6 mmol/L (3.5-5.1); TOTAL PROTEIN, SERUM 6.6 g/dL (6.0-8.3)
[2020-12-29] MEDS ORDERED: AMIODARONE 900MG VIAL 540 MG in DEXTROSE 5%-WATER 300 ML IV SCH (07:00)
[2020-12-29] MEDS ORDERED: AMIODARONE 540 MG/D5W 300ML (0.5MG/MIN) IV SCH ×2 (07:00)
[2020-12-29] MEDS ORDERED: AMIODARONE 150MG VIAL 150 MG in DEXTROSE 5%-WATER 100 ML IV SCH (08:00)
[2020-12-29] MEDS: FAMOTIDINE 20MG VIAL IV SCH ×2 (09:00→21:00)
[2020-12-29] MEDS: FUROSEMIDE 20MG VIAL IV SCH ×2 (09:37→21:18)
[2020-12-29] MEDS: ASPIRIN 81 MG EC TAB PO SCH (09:37)
[2020-12-29] MEDS: FAMOTIDINE 20MG TAB PO SCH ×2 (09:38→21:18)
[2020-12-29] MEDS: KCL 20 MEQ ERTAB PO SCH (09:38)
[2020-12-29 14:28] LABS: ABG BASE EXCESS 4.5 mmol/L (-2.0-3.0); ABG HCO3 28.7 mmol/L (21.0-28.0); ABG OXYGEN SATURATION 97.1 % (95.0-99.0); ABG PCO2 41 mmHg (35-48)
[2020-12-29 14:44] LABS: HEMATOCRIT 38.4 % (42-54); MEAN CORPUSCULAR HEMOGLOBIN 29.7 pg (27.0-33.0); MEAN CORPUSCULAR HGB CONC 33.1 g/dL (32.0-36.0); MEAN CORPUSCULAR VOLUME 89.7 fL (79-99); RED BLOOD CELL COUNT(AUTO) 4.28 MIL/uL (4.50-6.20); RED CELL DISTRIBUTION WIDTH 14.9 % (11.0-15.5); WHITE BLOOD COUNT (AUTO) 15.8 K/uL (4.8-10.8)
[2020-12-29 15:04] LABS: INR 1.09 (0.85-1.15); PROTHROMBIN TIME 11.8 SEC (9.6-11.6)
[2020-12-29 15:05] LABS: PARTIAL THROMBOPLASTIN TIME 26.5 SEC (26.3-35.5)
[2020-12-29] MEDS: 0.2% ROPIVACAINE 600ML Q-PUMP IRRIG SCH (20:11)
[2020-12-29] MEDS: ATORVASTATIN 40 MG TABLET PO SCH (21:18)
[2020-12-30] VITALS (15 sets, daily range): BP systolic 26–140; BP diastolic 25–88
[2020-12-30 04:21] LABS: HEMATOCRIT 38.3 % (42-54); MEAN CORPUSCULAR HEMOGLOBIN 29.2 pg (27.0-33.0); MEAN CORPUSCULAR HGB CONC 32.4 g/dL (32.0-36.0); MEAN CORPUSCULAR VOLUME 90.1 fL (79-99); RED BLOOD CELL COUNT(AUTO) 4.25 MIL/uL (4.50-6.20); RED CELL DISTRIBUTION WIDTH 14.7 % (11.0-15.5); WHITE BLOOD COUNT (AUTO) 17.9 K/uL (4.8-10.8)
[2020-12-30 04:30] LABS: CREATININE 1.2 mg/dL (0.5-1.5); POTASSIUM 4.1 mmol/L (3.5-5.1)
[2020-12-30] MEDS: FAMOTIDINE 20MG TAB PO SCH ×2 (08:44→19:56)
[2020-12-30] MEDS: AMIODARONE 200 MG TABLET PO SCH (08:44)
[2020-12-30] MEDS: ASPIRIN 81 MG EC TAB PO SCH (08:44)
[2020-12-30] MEDS: FAMOTIDINE 20MG VIAL IV SCH ×2 (08:45→21:00)
[2020-12-30] MEDS: KCL 20 MEQ ERTAB PO SCH (08:45)
[2020-12-30] MEDS ORDERED: FUROSEMIDE 20 MG TABLET PO SCH (09:00)
[2020-12-30] MEDS: 0.2% ROPIVACAINE 600ML Q-PUMP IRRIG SCH (13:30)
[2020-12-30] MEDS: FUROSEMIDE 20 MG TABLET PO SCH ×2 (15:47→19:56)
[2020-12-30] MEDS: ATORVASTATIN 40 MG TABLET PO SCH (19:56)
[2020-12-31] VITALS: BP 130/63
[2020-12-31 04:00] VITALS: BP 122/75
[2020-12-31 04:08] LABS: HEMATOCRIT 33.3 % (42-54); MEAN CORPUSCULAR HEMOGLOBIN 29.2 pg (27.0-33.0); MEAN CORPUSCULAR HGB CONC 33.3 g/dL (32.0-36.0); MEAN CORPUSCULAR VOLUME 87.6 fL (79-99); RED BLOOD CELL COUNT(AUTO) 3.8 MIL/uL (4.50-6.20); RED CELL DISTRIBUTION WIDTH 14.1 % (11.0-15.5); WHITE BLOOD COUNT (AUTO) 13.6 K/uL (4.8-10.8)
[2020-12-31 04:31] LABS: CREATININE 1.1 mg/dL (0.5-1.5); POTASSIUM 3.7 mmol/L (3.5-5.1)
[2020-12-31] MEDS: KCL 20 MEQ ERTAB PO PRN (05:44)
[2020-12-31 08:04] LABS: HEMATOCRIT 32.4 % (42-54)
[2020-12-31 08:17] LABS: INR 1.02 (0.85-1.15); PROTHROMBIN TIME 11.1 SEC (9.6-11.6)
[2020-12-31] MEDS: ASPIRIN 81 MG EC TAB PO SCH (08:45)
[2020-12-31] MEDS: AMIODARONE 200 MG TABLET PO SCH (08:45)
[2020-12-31] MEDS: FAMOTIDINE 20MG TAB PO SCH ×2 (08:45→20:30)
[2020-12-31] MEDS: KCL 20 MEQ ERTAB PO SCH (08:46)
[2020-12-31] MEDS: FUROSEMIDE 20 MG TABLET PO SCH ×3 (08:49→20:33)
[2020-12-31] MEDS: TRAMADOL HCL 50 MG TABLET PO PRN ×2 (08:50→22:18)
[2020-12-31] MEDS: FAMOTIDINE 20MG VIAL IV SCH ×2 (09:00→21:00)
[2020-12-31 20:00] VITALS: BP 116/70
[2020-12-31] MEDS: 0.2% ROPIVACAINE 600ML Q-PUMP IRRIG SCH (20:00)
[2020-12-31] MEDS: ATORVASTATIN 40 MG TABLET PO SCH (20:33)
[2020-12-31] MEDS: CARVEDILOL 3.125 MG TABLET PO SCH (20:34)
[2020-12-31] MEDS ORDERED: APIXABAN 5 MG TABLET PO SCH (21:00)
[2020-12-31 22:19] VITALS: BP 116/70
[2020-12-31 23:46] VITALS: BP 110/67
[2021-01-01 04:24] LABS: BASOPHILS % (AUTO) 0.7 % (0.0-5.0); EOSINOPHILS % (AUTO) 0.4 % (0.0-8.0); HEMATOCRIT 36.1 % (42-54); LYMPHOCYTES % (AUTO) 20.8 % (21.0-51.0); MEAN CORPUSCULAR HEMOGLOBIN 28.9 pg (27.0-33.0); MEAN CORPUSCULAR HGB CONC 31.9 g/dL (32.0-36.0); MEAN CORPUSCULAR VOLUME 90.7 fL (79-99); MONOCYTES % (AUTO) 10.5 % (3.0-13.0); NEUTROPHILS % (AUTO) 66.5 % (40.0-77.0); PLATELET COUNT (AUTO) 195 K/uL (130-400); RED BLOOD CELL COUNT(AUTO) 3.98 MIL/uL (4.50-6.20); RED CELL DISTRIBUTION WIDTH 13.9 % (11.0-15.5); WHITE BLOOD COUNT (AUTO) 12.1 K/uL (4.8-10.8)
[2021-01-01 04:30] VITALS: BP 111/73
[2021-01-01 04:49] LABS: ALBUMIN 2.8 g/dL (3.5-5.0); BILIRUBIN,TOTAL 1.1 mg/dL (0.2-1.0); CREATININE 1.2 mg/dL (0.5-1.5); TOTAL PROTEIN, SERUM 7.1 g/dL (6.0-8.3)
[2021-01-01 07:00] VITALS: BP 119/68
[2021-01-01] MEDS: FAMOTIDINE 20MG TAB PO SCH ×2 (08:43→20:31)
[2021-01-01] MEDS: FUROSEMIDE 20 MG TABLET PO SCH ×3 (08:43→20:32)
[2021-01-01] MEDS: KCL 20 MEQ ERTAB PO SCH (08:44)
[2021-01-01] MEDS: CARVEDILOL 3.125 MG TABLET PO SCH ×2 (08:44→20:31)
[2021-01-01] MEDS: AMIODARONE 200 MG TABLET PO SCH (08:44)
[2021-01-01] MEDS: ASPIRIN 81 MG EC TAB PO SCH (08:44)
[2021-01-01] MEDS: FAMOTIDINE 20MG VIAL IV SCH ×3 (08:56→20:29)
[2021-01-01 11:00] VITALS: BP 112/66
[2021-01-01] MEDS: 0.2% ROPIVACAINE 600ML Q-PUMP IRRIG SCH (13:30)
[2021-01-01] MEDS: LOSARTAN 25 MG TABLET PO SCH (14:09)
[2021-01-01 16:00] VITALS: BP 116/74
[2021-01-01 17:49] LABS: APPEARANCE,URINE Clear (CLEAR); BILIRUBIN,URINE Negative (NEGATIVE); COLOR,URINE Dark Yellow (YELLOW); GLUCOSE, URINE (UA) Negative (NEGATIVE); KETONES,URINE Negative (NEGATIVE); LEUKOCYTE ESTERASE ,URINE Trace (NEGATIVE); NITRATE,URINE Negative (NEGATIVE); OCCULT BLOOD,URINE Negative (NEGATIVE); PROTEIN,URINE Negative (NEGATIVE)
[2021-01-01 17:59] LABS: BACTERIA,URINE Rare /HPF (None Seen); MUCUS,URINE Few LPF (None Seen); RBC,URINE 0-1 /HPF (0-1); SQUAMOUS EPITHELIAL CELL,UR Rare /HPF (0-2)
[2021-01-01 19:18] VITALS: BP 107/70
[2021-01-01] MEDS: ATORVASTATIN 40 MG TABLET PO SCH (20:31)
[2021-01-01 23:49] VITALS: BP 117/75
[2021-01-02 03:54] VITALS: BP 124/78
[2021-01-02] MEDS: FUROSEMIDE 20 MG TABLET PO SCH ×3 (07:34→20:54)
[2021-01-02] MEDS: LOSARTAN 25 MG TABLET PO SCH (07:35)
[2021-01-02] MEDS: CARVEDILOL 3.125 MG TABLET PO SCH ×2 (07:35→20:54)
[2021-01-02] MEDS: KCL 20 MEQ ERTAB PO SCH (07:35)
[2021-01-02] MEDS: AMIODARONE 200 MG TABLET PO SCH (07:35)
[2021-01-02] MEDS: FAMOTIDINE 20MG TAB PO SCH ×2 (07:36→20:54)
[2021-01-02] MEDS: ASPIRIN 81 MG EC TAB PO SCH (07:36)
[2021-01-02] MEDS: 0.2% ROPIVACAINE 600ML Q-PUMP IRRIG SCH (07:39)
[2021-01-02 07:53] VITALS: BP 140/88
[2021-01-02 12:00] VITALS: BP 109/57
[2021-01-02 14:43] LABS: INR 1.02 (0.85-1.15); PROTHROMBIN TIME 11.1 SEC (9.6-11.6)
[2021-01-02] MEDS: HEPARIN 25,000 UNITS/250ML D5W 250 ML IV SCH (15:22)
[2021-01-02] MEDS ORDERED: HEPARIN 5,000 UNIT VIAL SQ SCH (15:30)
[2021-01-02 16:00] VITALS: BP 102/57
[2021-01-02 19:51] VITALS: BP 101/52
[2021-01-02] MEDS: ATORVASTATIN 40 MG TABLET PO SCH (20:54)
[2021-01-02] MEDS: ACETAMINOPHEN 325 MG TAB PO PRN (20:55)
[2021-01-02] MEDS ORDERED: APIXABAN 5 MG TABLET PO SCH (21:00)
[2021-01-02] MEDS ORDERED: WARFARIN SODIUM 5 MG TAB PO SCH (21:00)
[2021-01-02] MEDS: FAMOTIDINE 20MG VIAL IV SCH ×2 (21:00→22:25)
[2021-01-02 21:20] LABS: INR 1.07 (0.85-1.15); PROTHROMBIN TIME 11.6 SEC (9.6-11.6)
[2021-01-02 21:22] LABS: PARTIAL THROMBOPLASTIN TIME 80.2 SEC (26.3-35.5)
[2021-01-02 23:44] VITALS: BP 114/70
[2021-01-03 03:46] LABS: MEAN CORPUSCULAR HEMOGLOBIN 29.3 pg (27.0-33.0); MEAN CORPUSCULAR HGB CONC 33.9 g/dL (32.0-36.0); MEAN CORPUSCULAR VOLUME 86.6 fL (79-99); RED BLOOD CELL COUNT(AUTO) 3.58 MIL/uL (4.50-6.20); RED CELL DISTRIBUTION WIDTH 13.7 % (11.0-15.5); WHITE BLOOD COUNT (AUTO) 9.8 K/uL (4.8-10.8)
[2021-01-03 04:07] LABS: INR 1.07 (0.85-1.15); PROTHROMBIN TIME 11.6 SEC (9.6-11.6)
[2021-01-03 04:09] LABS: PARTIAL THROMBOPLASTIN TIME 58.6 SEC (26.3-35.5)
[2021-01-03 04:10] LABS: CREATININE 1.2 mg/dL (0.5-1.5); POTASSIUM 3.9 mmol/L (3.5-5.1)
[2021-01-03 04:20] VITALS: BP 131/82
[2021-01-03 07:24] VITALS: BP 132/87
[2021-01-03] MEDS: CARVEDILOL 3.125 MG TABLET PO SCH ×2 (08:29→20:24)
[2021-01-03] MEDS: LOSARTAN 25 MG TABLET PO SCH (08:29)
[2021-01-03] MEDS: ASPIRIN 81 MG EC TAB PO SCH (08:29)
[2021-01-03] MEDS: FAMOTIDINE 20MG TAB PO SCH ×2 (08:30→20:24)
[2021-01-03] MEDS: FUROSEMIDE 20 MG TABLET PO SCH ×3 (08:30→20:24)
[2021-01-03] MEDS: KCL 20 MEQ ERTAB PO SCH (08:30)
[2021-01-03] MEDS: AMIODARONE 200 MG TABLET PO SCH (08:30)
[2021-01-03] MEDS ORDERED: PHARMACY COMMUNICATION MISC SCH (09:00)
[2021-01-03 11:08] VITALS: BP 130/80
[2021-01-03] MEDS: 0.2% ROPIVACAINE 600ML Q-PUMP IRRIG SCH (13:30)
[2021-01-03 15:12] VITALS: BP 121/75
[2021-01-03] MEDS ORDERED: WARFARIN SODIUM 5 MG TAB PO SCH (17:00)
[2021-01-03 19:52] VITALS: BP 132/88
[2021-01-03] MEDS: ATORVASTATIN 40 MG TABLET PO SCH (20:23)
[2021-01-03] MEDS: FAMOTIDINE 20MG VIAL IV SCH (20:24)
[2021-01-03] MEDS: ACETAMINOPHEN 325 MG TAB PO PRN (20:34)
[2021-01-03 23:47] VITALS: BP 138/89
[2021-01-04 04:10] LABS: POTASSIUM 3.8 mmol/L (3.5-5.1)
[2021-01-04 04:11] VITALS: BP 132/83
[2021-01-04] MEDS: HEPARIN 25,000 UNITS/250ML D5W 250 ML IV SCH (04:25)
[2021-01-04 04:42] LABS: INR 1.14 (0.85-1.15); PROTHROMBIN TIME 12.3 SEC (9.6-11.6)
[2021-01-04 04:43] LABS: PARTIAL THROMBOPLASTIN TIME 53.8 SEC (26.3-35.5)
[2021-01-04] MEDS: ACETAMINOPHEN 325 MG TAB PO PRN (06:42)
[2021-01-04 07:00] VITALS: BP 137/89
[2021-01-04] MEDS: AMIODARONE 200 MG TABLET PO SCH (07:58)
[2021-01-04] MEDS: FUROSEMIDE 20 MG TABLET PO SCH ×3 (07:58→21:15)
[2021-01-04] MEDS: KCL 20 MEQ ERTAB PO SCH (07:58)
[2021-01-04] MEDS: LOSARTAN 25 MG TABLET PO SCH (07:58)
[2021-01-04] MEDS: ASPIRIN 81 MG EC TAB PO SCH (07:59)
[2021-01-04] MEDS: CARVEDILOL 3.125 MG TABLET PO SCH ×2 (07:59→21:16)
[2021-01-04] MEDS: FAMOTIDINE 20MG TAB PO SCH ×2 (07:59→21:15)
[2021-01-04] MEDS: FAMOTIDINE 20MG VIAL IV SCH ×2 (08:00→21:00)
[2021-01-04 11:00] VITALS: BP 128/80
[2021-01-04] MEDS: 0.2% ROPIVACAINE 600ML Q-PUMP IRRIG SCH (11:29)
[2021-01-04] MEDS ORDERED: AEC81 PO (13:36)
[2021-01-04] MEDS ORDERED: LOSA25TA41 PO (13:36)
[2021-01-04] MEDS ORDERED: AMIO200T68 PO (13:36)
[2021-01-04] MEDS ORDERED: CARV3.1262 PO (13:36)
[2021-01-04 16:00] VITALS: BP 130/83
[2021-01-04 20:00] VITALS: BP 134/83
[2021-01-04] MEDS: ATORVASTATIN 40 MG TABLET PO SCH (21:15)
[2021-01-04 23:59] VITALS: BP 138/75
[2021-01-05 04:00] VITALS: BP 138/87
[2021-01-05 07:00] VITALS: BP 136/80
[2021-01-05] MEDS: FAMOTIDINE 20MG TAB PO SCH ×2 (07:47→20:40)
[2021-01-05] MEDS: KCL 20 MEQ ERTAB PO SCH (07:49)
[2021-01-05] MEDS: AMIODARONE 200 MG TABLET PO SCH (07:49)
[2021-01-05] MEDS: LOSARTAN 25 MG TABLET PO SCH (07:50)
[2021-01-05] MEDS: ASPIRIN 81 MG EC TAB PO SCH (07:50)
[2021-01-05] MEDS: CARVEDILOL 3.125 MG TABLET PO SCH ×2 (07:51→20:39)
[2021-01-05] MEDS: FUROSEMIDE 20 MG TABLET PO SCH ×3 (07:51→20:40)
[2021-01-05] MEDS: ACETAMINOPHEN 325 MG TAB PO PRN (07:56)
[2021-01-05 09:07] LABS: HEMATOCRIT 38.9 % (42-54); MEAN CORPUSCULAR HEMOGLOBIN 28.9 pg (27.0-33.0); MEAN CORPUSCULAR HGB CONC 33.2 g/dL (32.0-36.0); RED BLOOD CELL COUNT(AUTO) 4.47 MIL/uL (4.50-6.20); RED CELL DISTRIBUTION WIDTH 13.6 % (11.0-15.5); WHITE BLOOD COUNT (AUTO) 12.1 K/uL (4.8-10.8)
[2021-01-05 09:15] LABS: CREATININE 1.1 mg/dL (0.5-1.5); POTASSIUM 3.7 mmol/L (3.5-5.1)
[2021-01-05 11:00] VITALS: BP 120/74
[2021-01-05 15:50] LABS: INR 1.14 (0.85-1.15); PROTHROMBIN TIME 12.3 SEC (9.6-11.6)
[2021-01-05 16:00] VITALS: BP 125/75
[2021-01-05] MEDS: WARFARIN SODIUM 5 MG TAB PO SCH (16:19)
[2021-01-05 19:59] VITALS: BP 128/84
[2021-01-05] MEDS ORDERED: 0.2% ROPIVACAINE 600ML Q-PUMP IRRIG SCH (20:00)
[2021-01-05] MEDS: ATORVASTATIN 40 MG TABLET PO SCH (20:40)
[2021-01-05 23:24] VITALS: BP 138/88
[2021-01-06 03:25] VITALS: BP 124/77
[2021-01-06 07:45] VITALS: BP 124/76
[2021-01-06 09:13] LABS: HEMATOCRIT 36.8 % (42-54); MEAN CORPUSCULAR HGB CONC 33.2 g/dL (32.0-36.0); MEAN CORPUSCULAR VOLUME 87.6 fL (79-99); PLATELET COUNT (AUTO) 397 K/uL (130-400); RED CELL DISTRIBUTION WIDTH 13.7 % (11.0-15.5); WHITE BLOOD COUNT (AUTO) 11.6 K/uL (4.8-10.8)
[2021-01-06 09:25] LABS: POTASSIUM 4.1 mmol/L (3.5-5.1)
[2021-01-06 09:26] LABS: INR 1.16 (0.85-1.15); PROTHROMBIN TIME 12.5 SEC (9.6-11.6)
[2021-01-06] MEDS: ASPIRIN 81 MG EC TAB PO SCH (09:27)
[2021-01-06] MEDS: FAMOTIDINE 20MG TAB PO SCH (09:27)
[2021-01-06] MEDS: CARVEDILOL 3.125 MG TABLET PO SCH (09:27)
[2021-01-06] MEDS: FUROSEMIDE 20 MG TABLET PO SCH (09:28)
[2021-01-06] MEDS: KCL 20 MEQ ERTAB PO SCH (09:28)
[2021-01-06] MEDS: AMIODARONE 200 MG TABLET PO SCH (09:28)
[2021-01-06 09:30] LABS: ALBUMIN 2.6 g/dL (3.5-5.0); BILIRUBIN,TOTAL 0.8 mg/dL (0.2-1.0); MAGNESIUM 1.9 mg/dL (1.80-2.40); TOTAL PROTEIN, SERUM 7.4 g/dL (6.0-8.3)
[2021-01-06 09:50] LABS: LYMPHOCYTES % (MANUAL) 10 % (22-44); MAN.DIFF COMMENT-IMPRESSION MANUAL DIFFERENTIAL; MONOCYTES % (MANUAL) 9 % (2-9); PLATELET MORPHOLOGY COMMENT ADEQUATE; SEGMENTED NEUTROPHILS % 81 % (40-70)
[2021-01-06] MEDS ORDERED: FURO20TA6 PO (11:31)
[2021-01-06 11:59] VITALS: BP 123/72
[2021-01-06] MEDS: LOSARTAN 25 MG TABLET PO SCH (15:35)
[2021-01-06] MEDS: WARFARIN SODIUM 5 MG TAB PO SCH (15:37)
[2021-01-06] MEDS ORDERED: ATOR40TA69 PO (15:48)
[2021-01-06] MEDS ORDERED: POTA10CA44 PO (15:48)
[2021-01-06] MEDS ORDERED: WARF-57 PO (15:48)
[2021-01-06] MEDS ORDERED: FAMO20TA8 PO (16:04)
[2021-01-06] MEDS ORDERED: FUROSEMIDE 20 MG TABLET PO SCH (21:00)
[2021-01-07] MEDS ORDERED: POTASSIUM CHLORIDE 10MEQ SR TAB PO SCH (09:00)
== END 2021-01-06 18:29 | disposition home or self-care (01) | DRG 216 ==
LOC: EDH 14:28 → EDHIP 14:48 → 4DH 12-21 15:27 → 2CV 12-28 10:39 → 2CH 12-29 12:39 → 2DH 12-30 17:55
PROVIDERS: ADMIT Internal Medicine; ATTEND Student in an Organized Health Care Education/Training Program
PROC: 4A023N7 Measurement of Cardiac Sampling and Pressure, Left Heart, Percutaneous Approach (ICD-10-PCS; 2020-12-26)
PROC: B2111ZZ Fluoroscopy of Multiple Coronary Arteries using Low Osmolar Contrast (ICD-10-PCS; 2020-12-26)
PROC: B41F1ZZ Fluoroscopy of Right Lower Extremity Arteries using Low Osmolar Contrast (ICD-10-PCS; 2020-12-26)
PROC: 5A1221Z Performance of Cardiac Output, Continuous (ICD-10-PCS; 2020-12-28)
PROC: B24BZZ4 Ultrasonography of Heart with Aorta, Transesophageal (ICD-10-PCS; 2020-12-28)
PROC: 02L70ZK Occlusion of Left Atrial Appendage, Open Approach (ICD-10-PCS; 2020-12-28)
PROC: 02UG0JZ Supplement Mitral Valve with Synthetic Substitute, Open Approach (ICD-10-PCS; principal; 2020-12-28 08:30)
PROC: 5A02110 Assistance with Cardiac Output using Balloon Pump, Intermittent (ICD-10-PCS; 2020-12-28 08:30)
PROC: 30233N1 Transfusion of Nonautologous Red Blood Cells into Peripheral Vein, Percutaneous Approach (ICD-10-PCS; 2020-12-29)
DX: I34.0 Nonrheumatic mitral (valve) insufficiency (principal); I51.1 Rupture of chordae tendineae, not elsewhere classified; I50.43 Acute on chronic combined systolic (congestive) and diastolic (congestive) heart failure; D68.59 Other primary thrombophilia; I47.1 Supraventricular tachycardia; I48.92 Unspecified atrial flutter; I48.0 Paroxysmal atrial fibrillation; I11.0 Hypertensive heart disease with heart failure; I25.10 Atherosclerotic heart disease of native coronary artery without angina pectoris; I25.82 Chronic total occlusion of coronary artery; Z20.822 Contact with and (suspected) exposure to COVID-19; E78.00 Pure hypercholesterolemia, unspecified; I25.5 Ischemic cardiomyopathy; N48.89 Other specified disorders of penis; N50.1 Vascular disorders of male genital organs; N50.89 Other specified disorders of the male genital organs; Y93.89 Activity, other specified; Y92.89 Other specified places as the place of occurrence of the external cause; Y99.8 Other external cause status; Z79.82 Long term (current) use of aspirin; Z79.01 Long term (current) use of anticoagulants; Z95.2 Presence of prosthetic heart valve; Z86.73 Personal history of transient ischemic attack (TIA), and cerebral infarction without residual deficits; Z79.899 Other long term (current) drug therapy; Z87.891 Personal history of nicotine dependence
CPT/HCPCS: 36415; 36430; 36600; 71045; 71046; 76870; 76882; 80048; 80053; 80061; 80074; 81001; 81003; 82105; 82172; 82247; 82435; 82550; 82803; 82947; 82948; 82977; 83010; 83036; 83605; 83735; 83874; 83880; 83883; 84100; 84132; 84145; 84295; 84443; 84460; 84484; 85014; 85018; 85025; 85027; 85347; 85378; 85610; 85651; 85730; 86804; 86850; 86900; 86901; 86923; 87077; 87088; 87186; 87522; 87635; 87902; 92960; 93005; 93306; 93308; 93313; 93318; 93356; 93458; 93880; 93970; 94002; 94003; 94010; 94150; 97039; 99152; 99153; 99156; 99157; A4344; A7048; C1760; C1894; G0378; J0171; J0282; J0610; J0690; J1644; J1815; J1940; J2001; J2250; J2270; J2370; J2704; J2720; J2795; J3010; J3475; J3480; J3490; J7030; J7040; J7060; P9016; P9045; P9047; Q9967

== ENCOUNTER → 2021-04-19 | Outpatient (CLI) | payer BC ==
[~2021-04-19] MED LIST changes: +AEC81 PO; -ALBUMIN (HUMAN) 25% 50 ML IV ONE; -AMINOCAPROIC ACID 5,000MG VIAL IV ONE; +AMIO200T68 PO; +ATOR40TA69 PO; -CACL 1GM SYG IVP ONE; +CARV3.1262 PO; +FAMO20TA8 PO; +FURO20TA6 PO; -FUROSEMIDE 20MG VIAL IVP ONE; -HEPARIN 10,000 UNIT/10ML (1,000 UNIT/ML) VIAL IV ONE; -LIDOCAINE PF 100MG/5ML (2%) SYRINGE 5ML IVP ONE; +LOSA25TA41 PO; -MAGNESIUM SULFATE 1 GM/2 ML VIAL IM ONE; -PHENYLEPHRINE HCL 10 MG/ML 1ML VIAL IV ONE; +POTA10CA44 PO; -SODIUM BICARB 8.4% 50ML SYRINGE IVP ONE; +WARF-57 PO
== END | disposition home or self-care (01) ==
LOC: SHCH 08:24
PROVIDERS: ATTEND Student in an Organized Health Care Education/Training Program
DX: I11.0 Hypertensive heart disease with heart failure (principal); I50.9 Heart failure, unspecified; I08.1 Rheumatic disorders of both mitral and tricuspid valves; I48.0 Paroxysmal atrial fibrillation
CPT/HCPCS: 93306

== ENCOUNTER → 2022-03-08 | Outpatient (CLI) | payer BC ==
[~2022-03-08] MED LIST changes: +APIX5TAB PO; -ATOR40TA69 PO; +ATOR40TA71 PO; -CARV3.1262 PO; +METO-408 PO; -POTA10CA44 PO; +POTA10CA45 PO; -WARF-57 PO
[2022-03-08 12:06] LABS: EOSINOPHILS % (AUTO) 1.5 % (0.0-8.0); HEMATOCRIT 43.8 % (42-54); LYMPHOCYTES % (AUTO) 38.2 % (21.0-51.0); MEAN CORPUSCULAR HEMOGLOBIN 30.1 pg (27.0-33.0); MEAN CORPUSCULAR HGB CONC 32.9 g/dL (32.0-36.0); MEAN CORPUSCULAR VOLUME 91.6 fL (79-99); MONOCYTES % (AUTO) 10.6 % (3.0-13.0); NEUTROPHILS % (AUTO) 48.1 % (40.0-77.0); PLATELET COUNT (AUTO) 225 K/uL (130-400); RED BLOOD CELL COUNT(AUTO) 4.78 MIL/uL (4.50-6.20); RED CELL DISTRIBUTION WIDTH 13.1 % (11.0-15.5); WHITE BLOOD COUNT (AUTO) 7.8 K/uL (4.8-10.8)
[2022-03-08 12:20] LABS: HEMOGLOBIN A1C 5.9 % (4.0-6.0)
[2022-03-08 12:43] LABS: CREATININE 1.7 mg/dL (0.5-1.5); POTASSIUM 4.7 mmol/L (3.5-5.1); THYROID STIMULATING HORMONE 5.93 uIU/mL (0.36-3.74); TOTAL PROTEIN, SERUM 7.8 g/dL (6.0-8.3)
== END | disposition home or self-care (01) ==
LOC: LAB 02-28 10:56
PROVIDERS: ATTEND Student in an Organized Health Care Education/Training Program
DX: I10 Essential (primary) hypertension (principal); R07.9 Chest pain, unspecified; E78.5 Hyperlipidemia, unspecified
CPT/HCPCS: 36415; 80053; 80061; 83036; 84443; 85025

== ENCOUNTER → 2022-06-08 | Outpatient (CLI) | payer BC ==
[2022-06-08 12:32] LABS: CREATININE 1.3 mg/dL (0.5-1.5); POTASSIUM 4.1 mmol/L (3.5-5.1)
== END | disposition home or self-care (01) ==
LOC: LAB 11:17
PROVIDERS: ATTEND Student in an Organized Health Care Education/Training Program
DX: I25.10 Atherosclerotic heart disease of native coronary artery without angina pectoris (principal)
CPT/HCPCS: 36415; 80048

== ENCOUNTER → 2022-08-17 | Outpatient (CLI) | payer BC ==
[~2022-08-17] MED LIST changes: -POTA10CA45 PO; +POTA10CA85 PO
[2022-08-17 12:01] LABS: BASOPHILS % (AUTO) 0.9 % (0.0-5.0); EOSINOPHILS % (AUTO) 0.8 % (0.0-8.0); HEMATOCRIT 44.8 % (42-54); LYMPHOCYTES % (AUTO) 33.8 % (21.0-51.0); MEAN CORPUSCULAR HEMOGLOBIN 29.8 pg (27.0-33.0); MEAN CORPUSCULAR HGB CONC 33.7 g/dL (32.0-36.0); MEAN CORPUSCULAR VOLUME 88.5 fL (79-99); MONOCYTES % (AUTO) 9.5 % (3.0-13.0); NEUTROPHILS % (AUTO) 54.4 % (40.0-77.0); PLATELET COUNT (AUTO) 241 K/uL (130-400); RED BLOOD CELL COUNT(AUTO) 5.06 MIL/uL (4.50-6.20); RED CELL DISTRIBUTION WIDTH 13.1 % (11.0-15.5); WHITE BLOOD COUNT (AUTO) 6.5 K/uL (4.8-10.8)
[2022-08-17 12:15] LABS: HEMOGLOBIN A1C 5.6 % (4.0-6.0)
[2022-08-17 12:18] LABS: ALBUMIN 3.9 g/dL (3.5-5.0); CREATININE 1.1 mg/dL (0.5-1.5); T4 (THYROXINE) 9.8 ug/dL (4.7-13.3); THYROID STIMULATING HORMONE 2.57 uIU/mL (0.36-3.74); TOTAL PROTEIN, SERUM 7.8 g/dL (6.0-8.3)
== END | disposition home or self-care (01) ==
LOC: LAB 09:46
PROVIDERS: ATTEND Student in an Organized Health Care Education/Training Program
DX: I48.0 Paroxysmal atrial fibrillation (principal); I25.10 Atherosclerotic heart disease of native coronary artery without angina pectoris; I11.0 Hypertensive heart disease with heart failure; I50.9 Heart failure, unspecified; E78.5 Hyperlipidemia, unspecified
CPT/HCPCS: 36415; 80053; 80061; 83036; 84436; 84443; 85025